=== PATIENT | female | born 1995 | race Caucasian/White ===

== ENCOUNTER 2022-05-11 09:09 | Inpatient (IN) | payer OTHER ==
[~2022-05-11] VITALS: Ht 170.2 cm; Wt 136.6 kg
[2022-06-08] VITALS (7 sets, daily range): BP systolic 111–173; BP diastolic 56–76; PULSE 79–96; TEMP 97.3–98.3
--- NOTE | 2022-06-08 06:25 | NUR ---
The patient ambulated back to [place] [address] independently using a steady gait and appeared to tolerate the activity well. Vital signs obtained. Consent signed. 18G IV started in left forearm on third attempt, LR Infusing without difficulty. Assessment completed. Medications reconcilled. at bedside at this time. Call light is within reach. Warm blanket provided. Denies any further needs.
--- NOTE | 2022-06-08 06:40 | NUR ---
The patient was taken over to the recovery room to have a nerve block placed prior to surgery. The patient's chart was sent with her. The patient's belongings were taken over to the recovery room and will be transferred with her to her room post operatively.
--- NOTE | 2022-06-08 17:53 | NUR ---
PATIENT UP TO FLOOR AROUND 1100. PATIENT COMPLAINS OF NAUSEA. ZOFRAN GIVEN AT 1323. PATIENT DENIES ANY EMESIS. IT SOLUTIONS SALES CONSULTANT PUMP ADMINISTERED. SURGICAL SITES X6 CDI WITH BANDAIDS. IV TO LEFT AC WITH D5 1/2 NS AT 125ML/HOUR. PATIENT NPO. SINGH TO DD WITH MERE OUTPUT. SINGH POSITIONAL, CHANGED STAT LOCK. PATIENT AMBULATED HALLS. PATIENT RESTING IN BED WITH CALL LIGHT NEAR.
--- NOTE | 2022-06-08 17:53 | NUR ---
PATIENT UP TO FLOOR AROUND 1100. PATIENT COMPLAINS OF NAUSEA. ZOFRAN GIVEN AT 1323. PATIENT DENIES ANY EMESIS. PREPARER SAMPLES AND REPAIRS PUMP ADMINISTERED. SURGICAL SITES X6 CDI WITH BANDAIDS. IV TO LEFT AC WITH D5 1/2 NS AT 125ML/HOUR. PATIENT NPO. SINGH TO DD WITH MERE OUTPUT. SINGH POSITIONAL, CHANGED STAT LOCK. PATIENT AMBULATED HALLS. PATIENT RESTING IN BED WITH CALL LIGHT NEAR.
--- NOTE | 2022-06-08 19:59 | NUR ---
PT A&OX4 RESTING IN BED, AT BEDSIDE. PT DENIES PN. MEDS GIVEN AND ASSESSMENT COMPLETE. SINGH TO DD W YELLOW URINE OUTPUT. FLUIDS INSUING IN LT AC. X6 LAP SITES CDI. NO NEEDS AT THIS TIME. CALL LIGHT WITHIN REACH.
[2022-06-09] VITALS (9 sets, daily range): BP systolic 105–118; BP diastolic 52–66; PULSE 69–83; TEMP 98–99
[2022-06-09 06:43] LABS: BASO % 0.2 % (0.0-2.0); GRAN # 12.8 K/mm3 (1.4-6.5); GRAN % 79.4 % (42.2-75.2); HEMATOCRIT 42.2 % (37.0-47.0); HEMOGLOBIN 14.2 g/dl (12.5-16.0); LYMPH # 2.1 K/mm3 (1.2-3.4); LYMPH % 12.8 % (20.0-51.0); MEAN CELL VOLUME 89 fl (80.0-100.0); MEAN CORPUSCULAR HEMOGLOBIN 30 pg (27-31); MEAN CORPUSCULAR HGB CONC 34 g/dl (33.0-37.0); MEAN PLATELET VOLUME 11.2 fl (7.4-10.4); MONO # 1.2 K/mm3 (0.1-0.6); MONO % 7.2 % (1.7-9.3); PLATELET COUNT 250 K/mm3 (130-400); RED BLOOD COUNT 4.72 M/mm3 (4.10-5.30); REDCELL DISTRIBUTION WIDTH-CV 13.2 % (11.5-14.5)
[2022-06-09 07:23] LABS: ALBUMIN 3.9 gm/dL (3.5-5.0); BILIRUBIN,TOTAL 0.4 mg/dL (0.2-1.2); CALCIUM 9.3 mg/dL (8.4-10.2); CREATININE, serum 0.95 mg/dL (0.57-1.11); POTASSIUM 4.5 mmol/L (3.5-4.5)
--- NOTE | 2022-06-09 07:53 | NUR ---
Received shift report from the table games shift manager nurse.
--- NOTE | 2022-06-09 07:53 | NUR ---
Received shift report from the dry janitor nurse.
--- NOTE | 2022-06-09 11:35 | NUR ---
Patient awake in bed, alert and oriented. HADOOP SOFTWARE ENGINEER pump on, IVF infusing without difficulty. 6 bandaid in abdomen intact. Patient denies of pain at time. See process intervention for notes.
--- NOTE | 2022-06-09 11:35 | NUR ---
Patient awake in bed, alert and oriented. PHARMACY INFORMATICS SPECIALIST pump on, IVF infusing without difficulty. 6 bandaid in abdomen intact. Patient denies of pain at time. See process intervention for notes.
--- NOTE | 2022-06-09 14:37 | NUR ---
Initial visit; Patient thanked Sales Development Consultant for offering prayer and God's blessings for a successful journey to better health following her surgical procedure.
--- NOTE | 2022-06-09 14:37 | NUR ---
Initial visit; Patient thanked Freight Dispatcher for offering prayer and God's blessings for a successful journey to better health following her surgical procedure.
--- NOTE | 2022-06-09 18:03 | NUR ---
Patient c/o of pain at lower abdomen. Patient rated pain level 8/10 and describes pain as sharp. Patient reports of feeling nauseous, roxicodone administered for pain and zofran given for nausea. Family at the bedside.
--- NOTE | 2022-06-09 19:55 | NUR ---
PT A&OX4 RESTING IN BED. PT REPORTS FEELING NAUSEAS AND HAVING PN 7/10 IN LOWER ABDOMEN. X6 LAP SITES CDI. PT NOT TOLERATING FLUIDS. ASSESSMENT COMPLETE. SCDS APPLIED TO BLE. FLUIDS INFUSING AT 75 ML/HR IN LT AC. CALL LIGHT WITHIN REACH.
[2022-06-10 03:16] VITALS: BP 118/65; PULSE 83; TEMP 98.6
--- NOTE | 2022-06-10 07:15 | NUR ---
Received shift report from the assistant shift supervisor nurse.
--- NOTE | 2022-06-10 07:15 | NUR ---
Received shift report from the burlesque dancer nurse.
[2022-06-10 07:17] VITALS: BP 118/69; PULSE 81; TEMP 98.6
--- NOTE | 2022-06-10 08:52 | NUR ---
Patient having complaints of gas pain. I did provided a Kpad to comfort and encouraged activity.
--- NOTE | 2022-06-10 08:52 | NUR ---
Patient having complaints of gas pain. I did provided a Kpad to comfort and encouraged activity.
--- NOTE | 2022-06-10 09:20 | NUR ---
Follow-up visit; Danielle is experiencing some pain and thanked Assistant Teacher Primary for coming in and letting her know she is in Assistant Teacher Primary's thoughts and prayers since yesterday and Assistant Teacher Primary prays for a rapid and thorough recovery.
--- NOTE | 2022-06-10 10:06 | NUR ---
HETAL met with pt( Jez present # [phone]) to complete intake. Pt lives in [place], but will be moving on [facility] in 07/28/22. Pt is independent on all ADLS and does not use any DME. PCP is at [facility] and gets medications from [facility]. Pt did not have a DPOA-HC and agreed to complete one. HETAL witness and made copies for pt and put on in Chart. No other needs at this time. DPAO 1st agent: , Sebastian klein 2nd: Sister Dorcas TaveraMolly DC: Home
--- NOTE | 2022-06-10 10:06 | NUR ---
HETAL met with pt( Jez present # [phone]) to complete intake. Pt lives in [place], but will be moving on [facility] in 07/28/22. Pt is independent on all ADLS and does not use any DME. PCP is at [facility] and gets medications from [facility]. Pt did not have a DPOA-HC and agreed to complete one. HETAL witness and made copies for pt and put on in Chart. No other needs at this time. DPAO 1st agent: , Sebastian klein 2nd: Sister Dorcas TaveraMolly DC: Home
--- NOTE | 2022-06-10 10:10 | NUR ---
Patient laying in bed alert and oriented. Patient report of pain at lower abdomen. Patient rated pain level 6/10. Roxicodone administered. 6 bandaid dressing at abdomen intact. Will continue monitoring patient. Family at the bedside.
[2022-06-10 12:23] VITALS: BP 124/62; PULSE 87; TEMP 99
[2022-06-10] MEDS ORDERED: TYLENOL 500MG500 MG PO (13:34)
[2022-06-10] MEDS ORDERED: ROXICODONE 55 MG/TAB PO ×2 (13:34)
[2022-06-10 15:51] VITALS: BP 115/77; PULSE 81; TEMP 98.7
--- NOTE | 2022-06-10 18:34 | NUR ---
Patient sleeping in bed. IVF infusing without difficulty.
--- NOTE | 2022-06-10 18:34 | NUR ---
Patient sleeping in bed. IVF infusing without difficulty.
--- NOTE | 2022-06-10 19:00 | NUR ---
PT AMBULATING IN HALLWAY WITH STEADY GAIT. IVF CONTINUE TO LFA.
--- NOTE | 2022-06-10 19:00 | NUR ---
PT AMBULATING IN HALLWAY WITH STEADY GAIT. IVF CONTINUE TO LFA.
--- NOTE | 2022-06-10 20:03 | NUR ---
PT ASKING FOR PAIN MEDS, RATES PAIN 4/10 TO ABD. PT HAS BEEN TAKING ZOFRAN IV WHEN SHE TAKES PAIN MEDS, MEDICATED WITH ZOFRAN 4MG IVP AND OXYCODONE 5MG PO AT THIS TIME. PT REPORTS VOIDING WELL AND PASSING FLATUS. TRIES CHOCOLATE PUDDING AT THIS TIME WELL. KPAD TO ABD. LAP SITES X6.
[2022-06-10 20:23] VITALS: BP 110/60; PULSE 74; TEMP 98.6
--- NOTE | 2022-06-10 22:49 | NUR ---
PT REFUSES ES TYLENOL, D/T QUANTITY OF FLUID.
--- NOTE | 2022-06-10 22:49 | NUR ---
PT REFUSES ES TYLENOL, D/T QUANTITY OF FLUID.
[2022-06-10 23:23] VITALS: BP 123/63; PULSE 75; TEMP 98.2
--- NOTE | 2022-06-11 03:30 | NUR ---
PT DENIES NEED FOR PAIN MEDS. HAS RESTED WELL. IVF CONTINUE.
--- NOTE | 2022-06-11 03:30 | NUR ---
PT DENIES NEED FOR PAIN MEDS. HAS RESTED WELL. IVF CONTINUE.
[2022-06-11 03:39] VITALS: BP 124/60; PULSE 72; TEMP 98.4
[2022-06-11 07:26] VITALS: BP 116/69; PULSE 79; TEMP 98.5
--- NOTE | 2022-06-11 09:10 | NUR ---
Patient has been up ambulating halls with supportive significant other. She has a breakfast tray and has ate a few bites, reports feeling full, but denies nausea or pain. Discussed with her the importance of making sure her intake has nutritional value & protien. Encouraged Ensure shake vs the pudding or tea. Incisions open to air, edges well approximated. She has passed flatus. Iv to INT. Will monitor.
--- NOTE | 2022-06-11 11:03 | NUR ---
Patient ready for discharge. rounded. Discharge orders obtained. Patient requested zofran for home, Orders obtained and called into [facility]. We reviewed scripts send to pharmacy & medication safety. Patient verbalized understanding of following strictly her via horace light diet. denies questions about it. We reviewed incisions cares & signs & syumptoms to call or seek medication attention. activity reviewed. INT. Patient dressed & ready to get home. Ambulated out with all belongigns.
--- NOTE | 2022-06-11 11:03 | NUR ---
Patient ready for discharge. rounded. Discharge orders obtained. Patient requested zofran for home, Orders obtained and called into [facility]. We reviewed scripts send to pharmacy & medication safety. Patient verbalized understanding of following strictly her via horace light diet. denies questions about it. We reviewed incisions cares & signs & syumptoms to call or seek medication attention. activity reviewed. INT. Patient dressed & ready to get home. Ambulated out with all belongigns.
[2022-06-11] MEDS ORDERED: OXYCODONE H5 MG/5 ML PO ×3 (15:08→17:12)
[2022-06-11] MEDS ORDERED: TYLENOL ELIX32 MG/M2 PO ×3 (15:08→17:12)
== END 2022-06-11 11:32 | disposition home or self-care (01) | DRG 621 ==
LOC: EDBD 06-08 05:35 → INPTSU 06-08 05:35 → EDBD 06-08 05:35 → INPTSU 06-08 05:35 → SURG 06-08 07:30
PROVIDERS: ADMIT Surgery
PROC: 8E0W4CZ Robotic Assisted Procedure of Trunk Region, Percutaneous Endoscopic Approach (ICD-10-PCS; 2022-06-08)
PROC: 0D164ZA Bypass Stomach to Jejunum, Percutaneous Endoscopic Approach (ICD-10-PCS; principal; 2022-06-08 07:30)
DX: E66.01 Morbid (severe) obesity due to excess calories (principal); Z68.43 Body mass index [BMI] 50.0-59.9, adult; G47.33 Obstructive sleep apnea (adult) (pediatric); F41.9 Anxiety disorder, unspecified; J45.909 Unspecified asthma, uncomplicated; F32.A Depression, unspecified; E28.2 Polycystic ovarian syndrome; E11.9 Type 2 diabetes mellitus without complications
CPT/HCPCS: A4314; C9113; J0690; J1100; J1170; J1650; J1956; J2250; J2405; J2550; J2704; J2795; J3010; J3480; J7120

== ENCOUNTER → 2023-01-04 | Outpatient (CLI) | payer OTHER ==
[~2023-01-04] MED LIST: OXYCODONE H5 MG/5 ML PO; ROXICODONE 55 MG/TAB PO; TYLENOL 500MG500 MG PO; TYLENOL ELIX32 MG/M2 PO
== END ==
LOC: COL.RAD 12:40
DX: E28.2 Polycystic ovarian syndrome (principal); N97.0 Female infertility associated with anovulation
CPT/HCPCS: Q9967